=== PATIENT | female | born 1950 | race African-American/Black ===

== ENCOUNTER 2017-05-04 19:01 | Emergency (ER) | payer MEDICARE ==
--- NOTE | ~2017-05-04 | CT127 ---
[facility] A Service of [facility] RADIOLOGY TEXT RESULTS PATIENT: FLAKO NAILS LOCATION: [facility] : 50 UNIT #: [id number] AGE: [address]: Guy Duncan MD SEX: F ORDER DR: [id number] [facility] [address] [place], [place] [address] [id number] MR#: [id number] #: [id number] NAME: FLAKO NAILS : 1950 SEX: F STUDY DATE/TIME: 05/04/2017 23:38 UNIT: [facility] ROOM: STUDY DESCRIPTION: CT Upper Ext Lt Wo Cont Attending Physician: Guy Duncan Ordering Physician: Ed Doctor [id number] [facility] Primary Care Physician: Primary Care Physician No MEDICAL IMAGING REPORT This report is preliminary unless electronic signature is present EXAM CT left shoulder. HISTORY Left shoulder pain after a fall today. COMPARISON Left shoulder films, 05/04/2017. TECHNIQUE Thin section axial images performed through the left shoulder without contrast. Multiplanar reconstructed images reviewed at a workstation. This CT exam was performed with one or more of the following radiation dose reduction techniques: automatic exposure control, adjustment of mA and/or kV according to patient size, and iterative reconstruction. FINDINGS Examination demonstrates a comminuted fracture of the proximal left humerus primarily representing a transverse fracture through the surgical neck of the humerus. Fracture also extends into the greater tuberosity with minimal displacement of the greater tuberosity fragment of no more than 7 mm. There is up to 11 mm impaction of the surgical neck fracture, predominately along the lateral aspect. Humeral head articular surface remains intact and articulates normally with the glenoid. There is advanced glenohumeral joint osteoarthritis with asymmetric joint space narrowing, sclerosis, and subchondral cyst formation. Minimal joint effusion. There is a 1 cm loose body medial anterior glenohumeral joint. Lesser tuberosity remains intact with the humeral head fragment. Pacemaker battery pack noted over the left anterior chest with leads partially visualized. Left thorax remarkable for left upper lobe atelectasis or focal pneumonitis. [facility] A Service of [facility] RADIOLOGY TEXT RESULTS PATIENT: FLAKO NAILS LOCATION: [facility] : 50 UNIT #: [id number] AGE: [address]: Guy Duncan MD SEX: F ORDER DR: The AC joint demonstrates only minimal arthrosis. IMPRESSION CT findings compatible with a comminuted, moderately impacted fracture of the proximal humerus, primarily representing a transverse fracture through the surgical neck of the humerus with up to 11 mm of impaction. There is a fracture extending into the greater tuberosity but shows only minimal displacement of no more than 7 mm. Humeral head articular surface remains intact and normally articulates with the glenoid, though there is advanced glenohumeral joint osteoarthritis with a sizable loose body in the medial anterior joint. Dictated by... Amparo Palacios M.D. THIS IS AN ELECTRONICALLY VERIFIED REPORT Amparo Palacios M.D. at 05/09/2017 12:32 PM ANGELICA/bianca TD: 05/07/2017 15:14 JOB #: [id number] MEDICAL IMAGING REPORT Page 1 of 1 COPY
--- NOTE | ~2017-05-04 | CR229 ---
[facility] A Service of [facility] & [facility] RADIOLOGY TEXT RESULTS PATIENT: FLAKO NAILS LOCATION: [facility] : 50 UNIT #: [id number] AGE: [address]: Guy Duncan MD SEX: F ORDER DR: [id number] [facility] [address] [place], [place] [address] [id number] MR#: [id number] Acc #: [id number] NAME: VIRGILIO MONK : 1950 SEX: F STUDY DATE/TIME: 05/04/2017 19:48 UNIT: [facility] ROOM: STUDY DESCRIPTION: CR Shoulder Min 2 View Lt Attending Physician: Mane Duncan M.D. Ordering Physician: Ed Glen Lynn M.D. Primary Care Physician: No Primary Care Physician MEDICAL IMAGING REPORT This report is preliminary unless electronic signature is present EXAM Left shoulder series. HISTORY Trauma. Fall 05/04/17. FINDINGS AP internal and external rotation views of the left shoulder presented as transscapular view. No dedicated prior imaging of shoulder. Study degraded by clothing artifact overlying relevant anatomy. There is a comminuted fracture involving the proximal left humerus involving portions of anatomic and surgical neck. There is a dominant slightly oblique transverse fracture plane. There is some impaction along this fracture plane. There is a longitudinal fracture plane involving the greater tuberosity. The greater tuberosity fragment measures about 4.1 cm x 4 mm. It is slightly distracted laterally by approximately 2-3 mm at most. There is probably a fracture plane component involving the medial aspect of the humeral head and an associated inferiorly oriented humeral head osteophyte formation. The glenohumeral joint space is narrowed. The humeral head remains located within the glenoid process. I see no scapular fracture. Acromioclavicular joint relationship normal. Periarticular soft tissue show clothing artifact, but no soft tissue defect, subcutaneous air, or radiodense foreign body. Visualized ribs intact. Visualized pulmonary parenchyma clear. Cardiac pacemaker implanted over the left chest. Dictated by... Vega Willingham M.D. THIS IS AN ELECTRONICALLY VERIFIED REPORT Vega Willingham M.D. at 05/07/2017 5:51 PM ARABELLAK/vinicio [facility]. [facility] A Service of [facility] & [facility] RADIOLOGY TEXT RESULTS PATIENT: FLAKO NAILS LOCATION: [facility] : 50 UNIT #: [id number] AGE: [address]: Guy Duncan MD SEX: F ORDER DR: TD: 05/05/2017 11:29 JOB #: [id number] MEDICAL IMAGING REPORT Page 1 of 1 COPY
== END 2017-05-05 00:15 | disposition home or self-care (01) ==
LOC: CED 19:01
DX: S42.212A Unspecified displaced fracture of surgical neck of left humerus, initial encounter for closed fracture (principal); I50.9 Heart failure, unspecified; I11.0 Hypertensive heart disease with heart failure; E11.9 Type 2 diabetes mellitus without complications; F17.210 Nicotine dependence, cigarettes, uncomplicated; W01.0XXA Fall on same level from slipping, tripping and stumbling without subsequent striking against object, initial encounter; Y92.512 Supermarket, store or market as the place of occurrence of the external cause
CPT/HCPCS: 73030; 73200; 99283